=== PATIENT | female | born 1990 | race Caucasian/White ===

== ENCOUNTER 2017-03-18 19:49 | Emergency (ER) | payer MEDICAID ==
[~2017-03-18] VITALS: Ht 167.6 cm; Wt 62.6 kg
[2017-03-18 20:04] VITALS: Ht 167.6 cm; Wt 62.6 kg
[2017-03-18 22:22] LABS: BASOPHIL % 0.1 % (0-2); PLATELET COUNT 234 x10^3mcL (130-400); RED CELL DISTRIBUTION WIDTH 13.1 % (11.5-14.5)
[2017-03-18 22:28] LABS: CALCIUM 8.5 mg/dL (8.5-10.1); CARBON DIOXIDE 27.5 mmol/L (21-32); CHLORIDE SERUM 104 mmol/L (98-107); CREATININE SERUM 0.8 mg/dL (0.6-1.0); GFR1 > 60 mL/min; GLUCOSE SERUM 103 mg/dL (74-106); POTASSIUM SERUM 3.6 mmol/L (3.5-5.1); SODIUM SERUM 142 mmol/L (136-145)
[2017-03-18 22:33] LABS: ALBUMIN 3.5 g/dL (3.4-5.0); ALKALINE PHOSPHATASE 35 U/L (46-116); ALT/SGPT 20 U/L (14-59); AST/SGOT 15 U/L (15-37); BILIRUBIN TOTAL 0.6 mg/dL (0.20-1.00); TOTAL PROTEIN, SERUM 7.2 g/dL (6.4-8.2)
[2017-03-18 22:34] LABS: AMPHETAMINE QUAL UR POSITIVE (NEG <=1000)
[2017-03-19 00:17] VITALS: BP 134/71
== END 2017-03-19 00:17 | disposition home or self-care (01) ==
LOC: ED 19:49
PROVIDERS: Specialist
DX: R60.0 Localized edema (principal); L03.116 Cellulitis of left lower limb; L03.115 Cellulitis of right lower limb; F15.10 Other stimulant abuse, uncomplicated
CPT/HCPCS: 36415; 83880; J0690